=== PATIENT | male | born 1960 | race Hispanic/Latino ===

== ENCOUNTER 2019-04-16 15:23 | Observation (INO) | payer OTHER ==
[2019-04-16 15:51] LABS: Absolute Monocytes 0.4 K/uL (0.1-1.3); Absolute Neutrophil 3.6 K/uL (1.8-8.0); Basophils % 1.2 % (0-1.3); Eosinophils % 3.5 % (0-4.4); Hematocrit 43.2 % (39.6-49.0); Lymphocytes % 32.4 % (15.3-44.8); MPV 8.1 fL (7.6-11.3); RBC Red Blood Cell Count 4.78 M/uL (4.33-5.43)
[2019-04-16 15:52] LABS: Protime INR 0.91
[2019-04-16 16:20] LABS: ALT/SGPT 24 U/L (12-78); AST/SGOT 11 U/L (15-37); Alkaline Phosphatase 62 U/L (45-117); BUN Blood Urea Nitrogen 20 mg/dL (7-18); Bicarbonate 24 mmol/L (21-32); Bilirubin Direct 0.1 mg/dL (0-0.2); Bilirubin Total 0.6 mg/dL (0.2-1.0); Magnesium 2.1 mg/dL (1.8-2.4); NT PRO-BNP 32 pg/mL (<125); Potassium 4.2 mmol/L (3.5-5.1); Protein, Total 7.1 g/dL (6.4-8.2); Sodium Level 137 mmol/L (136-145); Troponin (Emerg Dept Use Only) < 0.02 ng/mL (0.0-0.045)
[2019-04-16 16:21] LABS: Glucose Level 454 mg/dL (74-106)
--- NOTE | 2019-04-16 16:27 | ER ---
Nurse's Notes [facility] Name: Deven Hughes Age: 58 yrs Sex: Male : 1960 Arrival Date: 04/16/2019 Time: 15:25 Bed 4 Private MD: Rena Murillo H Diagnosis: Chest pain, unspecified Presentation: 04/16 15:29 Presenting complaint: Patient states: midsternal chest pain with left arm radiation sv started about an hour ago and woke him up out of sleep with SOB and dry throat. Transition of care: patient was not received from another setting of care. Onset of symptoms was April 16, 2019 at 14:30. Initial Sepsis Screen: Does the patient meet any 2 criteria? No. Patient's initial sepsis screen is negative. Does the patient have a suspected source of infection? No. Patient's initial sepsis screen is negative. Care prior to arrival: None. 15:29 Method Of Arrival: Wheelchair sv 15:29 Acuity: STEF 3 sv 16:30 Risk Assessment: Do you want to hurt yourself or someone else? Patient reports no hb desire to harm self or others. Historical: - Allergies: 15:31 No Known Allergies; sv - PMHx: 15:31 Diabetes - NIDDM; Asthma; sv - PSHx: 15:31 Tonsillectomy; right thumb; sv - Immunization history:: Adult Immunizations up to date. - Social history:: Smoking status: Patient/guardian denies using tobacco, Patient/guardian denies using alcohol, street drugs, The patient lives with family. - Ebola Screening: : No symptoms or risks identified at this time. - Family history:: not pertinent. Screenin:39 Abuse screen: Denies threats or abuse. Denies injuries from another. Nutritional hb screening: No deficits noted. Tuberculosis screening: No symptoms or risk factors identified. Fall Risk None identified. Assessment: 15:39 General: Appears in no apparent distress. Behavior is calm, cooperative. Pain: hb Complains of pain in chest Pain does not radiate. Pain began suddenly, 4 hours ago. Neuro: Level of Consciousness is awake, alert, obeys commands, Oriented to person, place, time, situation. Cardiovascular: Heart tones S1 S2 present Capillary refill < 3 seconds Patient's skin is warm and dry. Respiratory: Airway is patent Respiratory effort is even, unlabored, Respiratory pattern is regular, symmetrical, Breath sounds are clear bilaterally. GI: No signs and/or symptoms were reported involving the gastrointestinal system. : No signs and/or symptoms were reported regarding the genitourinary system. EENT: No signs and/or symptoms were reported regarding the EENT system. Derm: Skin is intact, is healthy with good turgor, Skin is pink, warm \T\ dry. Musculoskeletal: No signs and/or symptoms reported regarding the musculoskeletal system. 16:30 Reassessment: Patient appears in no apparent distress at this time. No changes from previously documented assessment. Patient and/or family updated on plan of care and expected duration. Pain level reassessed. Patient is alert, oriented x 3, equal unlabored respirations, skin warm/dry/pink. 17:30 Reassessment: Patient appears in no apparent distress at this time. Patient and/or hb family updated on plan of care and expected duration. Pain level reassessed. Patient is alert, oriented x 3, equal unlabored respirations, skin warm/dry/pink. 17:58 Reassessment: Patient appears in no apparent distress at this time. Attempted to call hb report to floor, receiving nurse unavailable at this time. 18:24 Reassessment: Attempted to call report to floor, receiving nurse unassigned, Charge hb Nurse Savanna MARROQUIN notified. 19:02 Reassessment: Pt c/o chest pain 07/31. Dr. Tate notified, morphine and zofran hb administered as ordered. 19:10 General: Appears in no apparent distress. uncomfortable, Behavior is calm, cooperative, rr5 appropriate for age. Pain: Complains of pain in chest Pain does not radiate. Pain currently is 4 out of 10 on a pain scale. Quality of pain is described as aching, Pain began gradually, Is intermittent. Neuro: Level of Consciousness is awake, alert, obeys commands, Oriented to person, place, time, situation, Appropriate for age. Cardiovascular: Reports chest pain, Capillary refill < 3 seconds Patient's skin is warm and dry. Respiratory: Airway is patent Respiratory effort is even, unlabored, Respiratory pattern is regular, symmetrical. GI: No signs and/or symptoms were reported involving the gastrointestinal system. : No signs and/or symptoms were reported regarding the genitourinary system. EENT: No signs and/or symptoms were reported regarding the EENT system. Derm: Skin is intact, Skin is pink, warm \T\ dry. Musculoskeletal: Capillary refill < 3 seconds, Range of motion: intact in all extremities. 19:45 Reassessment: Patient appears in no apparent distress at this time. Patient is alert, rr5 oriented x 3, equal unlabored respirations, skin warm/dry/pink. call made to [facility] 4th floor and accepted the case. Vital Signs: 15:31 BP 135 / 95; Pulse 79; Resp 20; Temp 98.4; Pulse Ox 97% ; Pain 7/10; sv 16:30 BP 124 / 88; Pulse 76; Resp 17; Pulse Ox 100% on R/A; hb 17:30 BP 111 / 75; Pulse 77; Resp 18; Pulse Ox 98% on R/A; Pain 4/10; hb 18:30 BP 109 / 72; Pulse 77; Resp 15; Temp 97.7; Pulse Ox 99% on R/A; Pain 8/10; hb 19:10 BP 112 / 70; Pulse 75; Resp 17; Temp 97.5; Pulse Ox 99% ; Pain 5/10; rr5 19:48 BP 127 / 89; Pulse 68; Resp 17; Temp 97.9; Pulse Ox 100% ; Pain 3/10; rr5 ED Course: 15:25 Patient arrived in ED. dl4 15:26 Rena Murillo DO is Private Physician. dl4 15:30 Triage completed. sv 15:31 Arm band placed on. sv 15:34 Dannielle Tate MD is Attending Physician. ma2 15:36 Mandi Calderon, LOPEZ is Primary Nurse. hb 15:39 Patient has correct armband on for positive identification. Bed in low position. Call hb light in reach. Side rails up X 1. patient monitor on. Pulse ox on. NIBP on. 15:43 EKG done, by ED staff, reviewed by Dannielle Tate MD. Initial lab(s) drawn, by , john sent to lab. Inserted saline lock: 22 gauge in right antecubital area, using aseptic technique. Blood collected. 15:51 X-ray completed. Portable x-ray completed in exam room. Patient tolerated procedure tm4 well. 15:54 XRAY Chest (1 view) In Process Unspecified. EDMS 16:00 Patient maintains SpO2 saturation greater than 95% on room air. hb 16:27 Ric Cabrera DO is Hospitalizing Provider. ma2 19:05 No provider procedures requiring assistance completed. Patient admitted, IV remains in hb place. Administered Medications: 16:44 Drug: Insulin Regular Human 6 units {Co-Signature: bp (Hernandez Cordero RN).} Route: IVP; hb Site: right antecubital; 17:52 Follow up: Response: No adverse reaction; Blood sugar is lowered hb 16:44 Drug: Nitroglycerin 0.4 mg Route: Sublingual; hb 17:52 Follow up: Response: No adverse reaction; Pain is decreased hb 18:58 Drug: Zofran 4 mg Route: IVP; Site: right femoral; hb 20:00 Follow up: Response: No adverse reaction rr5 18:59 Drug: morphine 4 mg Route: IVP; Site: right antecubital; hb 20:00 Follow up: Response: No adverse reaction rr5 Outcome: 16:27 Decision to Hospitalize by Provider. ma2 19:05 Admitted to Tele accompanied by tech, via wheelchair, with chart. hb 19:05 Condition: stable 19:05 Instructed on the need for admit, Demonstrated understanding of instructions. 20:08 Patient left the ED. rr5 Signatures: Dispatcher [employer] EDMS Allen Parker jb1 Yola Figueroa, RN LOPEZ Chichi Haines tm4 Mandi Calderon RN RN Dannielle Tate MD MD ma2 Pérez Byrnes RN RN rr5 Luis Alberto Fregoso dl4 Hernandez Cordero RN bp
--- NOTE | 2019-04-16 16:28 | EDPHYS ---
Physician Documentation [facility] Name: Deven Hughes Age: 58 yrs Sex: Male : 1960 Arrival Date: 04/16/2019 Time: 15:25 Bed 4 Private MD: Rena Murillo H ED Physician Dannielle Tate HPI: 04/16 16:16 This 58 yrs old Male presents to ER via Wheelchair with complaints of Chest ma2 Pain. 16:16 The patient or guardian reports chest pain that is located primarily in the substernal ma2 area. Onset: suddenly, 5 hour(s) ago. The pain radiates to Associated signs and symptoms: Pertinent negatives: cough, headache, lightheadedness, nausea, syncope, vomiting. The chest pain is described as aching. Severity of pain: At its worst the pain was moderate in the emergency department the pain is unchanged. The patient has experienced a previous episode. Historical: - Allergies: 15:31 No Known Allergies; sv - PMHx: 15:31 Diabetes - NIDDM; Asthma; sv - PSHx: 15:31 Tonsillectomy; right thumb; sv - Immunization history:: Adult Immunizations up to date. - Social history:: Smoking status: Patient/guardian denies using tobacco, Patient/guardian denies using alcohol, street drugs, The patient lives with family. - Ebola Screening: : No symptoms or risks identified at this time. - Family history:: not pertinent. ROS: 16:16 Constitutional: Negative for fever, chills, and weight loss. ma2 16:16 Cardiovascular: Positive for chest pain, Negative for edema, palpitations, paroxysmal nocturnal dyspnea. 16:16 All other systems are negative. Exam: 16:16 Constitutional: This is a well developed, well nourished patient who is awake, alert, ma2 and in no acute distress. ENT: Nares patent. No nasal discharge, no septal abnormalities noted. Tympanic membranes are normal and external auditory canals are clear. Oropharynx with no redness, swelling, or masses, exudates, or evidence of obstruction, uvula midline. Mucous membranes moist. Neck: Trachea midline, no thyromegaly or masses palpated, and no cervical lymphadenopathy. Supple, full range of motion without nuchal rigidity, or vertebral point tenderness. No Meningismus. Chest/axilla: Normal chest wall appearance and motion. Nontender with no deformity. No lesions are appreciated. Cardiovascular: Regular rate and rhythm with a normal S1 and S2. No gallops, murmurs, or rubs. Normal PMI, no JVD. No pulse deficits. Respiratory: Lungs have equal breath sounds bilaterally, clear to auscultation and percussion. No rales, rhonchi or wheezes noted. No increased work of breathing, no retractions or nasal flaring. Abdomen/GI: Soft, non-tender, with normal bowel sounds. No distension or tympany. No guarding or rebound. No evidence of tenderness throughout. Skin: Warm, dry with normal turgor. Normal color with no rashes, no lesions, and no evidence of cellulitis. MS/ Extremity: Pulses equal, no cyanosis. Neurovascular intact. Full, normal range of motion. Vital Signs: 15:31 BP 135 / 95; Pulse 79; Resp 20; Temp 98.4; Pulse Ox 97% ; Pain 7/10; sv 16:30 BP 124 / 88; Pulse 76; Resp 17; Pulse Ox 100% on R/A; hb 17:30 BP 111 / 75; Pulse 77; Resp 18; Pulse Ox 98% on R/A; Pain 4/10; hb 18:30 BP 109 / 72; Pulse 77; Resp 15; Temp 97.7; Pulse Ox 99% on R/A; Pain 8/10; hb 19:10 BP 112 / 70; Pulse 75; Resp 17; Temp 97.5; Pulse Ox 99% ; Pain 5/10; rr5 19:48 BP 127 / 89; Pulse 68; Resp 17; Temp 97.9; Pulse Ox 100% ; Pain 3/10; rr5 MDM: 15:34 Patient medically screened. ma2 16:16 Differential diagnosis: abnormal EKG, anxiety, coronary artery disease chest wall pain, ma2 stable angina. HEART Score: History: Moderately Suspicious (1), ECG: Non specific repolarization disturbance / LBTB / PM (1), Age: > 45 and < 65 years (1), Risk Factors: 1 or 2 risk factors (1), Troponin: < or = 1 x Normal Limit (0), Total Score =. The patient was not given aspirin in the Emergency Department. Patient reports taking aspirin within the past 24 hours. 16:26 Data reviewed: vital signs, nurses notes. Counseling: I had a detailed discussion with ma2 the patient and/or guardian regarding: the historical points, exam findings, and any diagnostic results supporting the discharge/admit diagnosis, the presence of at least one elevated blood pressure reading (>120/80) during this emergency department visit, the need for further work-up and treatment in the hospital. Response to treatment: the patient's symptoms have markedly improved after treatment. 04/16 15:35 Order name: Basic Metabolic Panel; Complete Time: 16:25 ga2 04/16 15:35 Order name: CBC with Diff; Complete Time: 15:55 ma2 04/16 15:35 Order name: LFT's; Complete Time: 16:25 [facility] 04/16 15:35 Order name: Magnesium; Complete Time: 16:25 ga04/16 15:35 Order name: NT PRO-BNP; Complete Time: 16:25 [facility] 04/16 15:35 Order name: PT-INR; Complete Time: 15:56 ma2 04/16 15:35 Order name: Troponin (emerg Dept Use Only); Complete Time: 16:25 ga2 04/16 15:35 Order name: XRAY Chest (1 view); Complete Time: 18:55 ma2 04/16 16:59 Order name: Urine Dipstick--Ancillary (enter results); Complete Time: 18:55 bd 04/16 17:52 Order name: Glucose, Ancillary Testing; Complete Time: 18:55 EDMS 04/16 15:35 Order name: EKG; Complete Time: 15:37 ga2 04/16 15:35 Order name: Cardiac monitoring; Complete Time: 15:39 ma2 04/16 15:35 Order name: EKG - Nurse/Tech; Complete Time: 15:39 ma2 04/16 15:35 Order name: IV Saline Lock; Complete Time: 15:39 ma2 04/16 15:35 Order name: Labs collected and sent; Complete Time: 15:39 ma2 04/16 15:35 Order name: O2 Per Protocol; Complete Time: 15:39 ga2 04/16 15:35 Order name: O2 Sat Monitoring; Complete Time: 15:39 ma2 Administered Medications: 16:44 Drug: Insulin Regular Human 6 units {Co-Signature: bp (Hernandez Cordero RN).} Route: IVP; hb Site: right antecubital; 17:52 Follow up: Response: No adverse reaction; Blood sugar is lowered hb 16:44 Drug: Nitroglycerin 0.4 mg Route: Sublingual; hb 17:52 Follow up: Response: No adverse reaction; Pain is decreased hb 18:58 Drug: Zofran 4 mg Route: IVP; Site: right femoral; hb 20:00 Follow up: Response: No adverse reaction rr5 18:59 Drug: morphine 4 mg Route: IVP; Site: right antecubital; hb 20:00 Follow up: Response: No adverse reaction rr5 Disposition: 04/16/19 16:27 Hospitalization ordered by Ric Cabrera for Observation. Preliminary diagnosis is Chest pain, unspecified. - Bed requested for Telemetry/MedSurg (observation). - Status is Observation. rr5 - Condition is Stable. - Problem is new. - Symptoms are unchanged. UTI on Admission? No Signatures: Dispatcher [employer] Yola Melo RN RN Abby Black RN RN Mandi Calderon RN RN Dannielle Tate MD MD ma2 Pérez Byrnes, RN RN rr5 Hernandez Cordero RN bp Corrections: (The following items were deleted from the chart) 17:45 16:27 Hospitalization Ordered by Ric Cabrera DO for Observation. Preliminary dw diagnosis is Chest pain, unspecified. Bed requested for Telemetry/MedSurg (observation). Status is Observation. Condition is Stable. Problem is new. Symptoms are unchanged. UTI on Admission? No. ma2 20:08 17:45 04/16/2019 16:27 Hospitalization Ordered by Ric Cabrera DO for Observation. rr5 Preliminary diagnosis is Chest pain, unspecified. Bed requested for Telemetry/MedSurg (observation). Status is Observation. Condition is Stable. Problem is new. Symptoms are unchanged. UTI on Admission? No. dw
--- NOTE | 2019-04-16 16:48 | RAD REPORT ---
EXAM DESCRIPTION: RAD - Chest Single View - 04/16/2019 3:52 pm CLINICAL HISTORY: Chest pain radiating to the left arm COMPARISON: July 2016 TECHNIQUE: AP portable chest image was obtained 1550 hours . FINDINGS: Lung volumes are low accentuating lung markings. No focal mass, infiltrate or failure find ing. Heart and vasculature are normal. No measurable pleural effusion and no pneumothorax. No acute b ashlyn abnormality seen. No acute aortic findings suspected. IMPRESSION: No acute cardiopulmonary process. No suspicious change from comparison.
--- NOTE | 2019-04-16 17:20 | P.HP ---
Certification for Inpatient Patient admitted to: Observation With expected LOS: <2 Midnights Patient will require the following post-hospital care: None Practitioner: I am a practitioner with admitting privileges, knowledge of patient current condition, hospital course, and medical plan of care. Services: Services provided to patient in accordance with Admission requirements found in Title 42 Section 412.3 of the Code of Federal Regulations Patient History Date of Service: 04/16/19 Primary Care Provider: Dr. Murillo Reason for admission: Chest pain History of Present Illness: 58-year-old male presented to the emergency room with chest pain. Patient presented with chest pain that started early this morning when he woke up. It was to the substernal region. Pain was moderate. It was associated with shortness of breath, palpitation. No nausea or vomiting noted. Patient with history of diabetes uncontrolled. Patient has not followed up with his PCP for quite some time. He is not taking his medication-Metformin in over a month. Patient does not check his blood sugars. Patient came to the ER for further evaluation. In the ER patient evaluated. No significant EKG changes noted on EKG. Chest x- ray unremarkable. Initial troponin unremarkable. Blood sugars elevated. Blood sugar 454. Sodium 137, potassium 4.2, CBC unremarkable. Blood pressure 135/95. Heart rate 79. Room-air saturations within normal range. Patient was admitted for observation to further evaluate his chest pain. Patient seen in the ER. Pain improved. Heart score calculated-5. Patient with alcohol abuse and diabetes. Diabetes is uncontrolled. Patient reports non compliant with medication and follow up. Prior echocardiogram and exercise stress test in 2012 was unremarkable. Patient reports family history of heart disease-father with 3 prior stents. Allergies No Known Allergies Allergy (Verified 09/03/13 23:46) Home medications list reviewed: Yes Home Medications: Fluticasone/Salmeterol [Advair 100/50 Diskus*] 1 puff IH DAILY 09/04/13 Metformin ER [Glucophage ER*] 500 mg PO DAILY 09/04/13 Glimepiride [Amaryl*] 2 mg PO DAILY #60 tab 09/06/13 Pantoprazole Sodium [Protonix] 40 mg PO DAILY #0 tablet. 09/06/13 Simvastatin 40 mg PO BEDTIME #30 tablet 09/06/13 - Past Medical/Surgical History Diabetic: Yes -: Asthma -: Diabetes mellitus type 2 -: Alcohol abuse -: Tonsillectomy -: Right thumb surgery Psychosocial/ Personal History: Patient is - Family History Father -: Heart disease, Hypertension - Social History Smoking Status: Never smoker Alcohol use: Yes CD- Drugs: No Caffeine use: Yes Place of Residence: Home Review of Systems General: As per HPI Eyes: Unremarkable ENT: Unremarkable Respiratory: Shortness of Breath, As per HPI Cardiovascular: Chest Pain, Palpitations, As per HPI Gastrointestinal: Unremarkable Genitourinary: Unremarkable Musculoskeletal: Unremarkable Integumentary: Unremarkable Neurological: Unremarkable Lymphatics: Unremarkable Physical Examination - Physical Exam General: Alert, In no apparent distress, Oriented x3, Cooperative HEENT: Atraumatic, Normocephalic, PERRLA, Mucous membr. moist/pink, EOMI Neck: Supple, No Thyromegaly Respiratory: Clear to auscultation bilaterally, Normal air movement Cardiovascular: Normal pulses, Regular rate/rhythm Gastrointestinal: Normal bowel sounds, Soft and benign, Non-distended, No tenderness, No masses, No rebound, No guarding Musculoskeletal: No erythema, No tenderness, No warmth Integumentary: No tenderness/swelling, No erythema, No warmth, No cyanosis Neurological: Normal speech, Normal strength at 5/5 x4 extr, Normal tone, Normal affect - Studies Laboratory Data (last 24 hrs) 04/16/19 15:40: PT 10.8, INR 0.91 04/16/19 15:40: WBC 6.3, Hgb 15.1, Hct 43.2, Plt Count 219 04/16/19 15:40: Sodium 137, Potassium 4.2, BUN 20 H, Creatinine 0.94, Glucose 454 H*, Magnesium 2.1, Total Bilirubin 0.6, AST 11 L, ALT 24, Alkaline Phosphatase 62 Assessment and Plan - Plan Impression: Chest pain with multiple risk factors(DM/Alcohol use/Family history of CAD) Diabetes mellitus type 2, uncontrolled with poor follow-up and noncompliance with medication Suspect underlying hyperlipidemia Alcohol abuse Plan: Chest pain with multiple risk factors(DM/Alcohol use/Family history of CAD): Patient will be admitted for observation. Will monitor cardiac enzymes and telemetry. Will start aspirin, metoprolol, Lipitor, and Lovenox for DVT prophylaxis. Provide medication for chest pain if required. Will check urine drug screen. Will consult cardiology for further evaluation and recommendation. Will order echocardiogram and stress test to further assess his condition for cardiac disease. Heart score calculated-5. If workup unremarkable patient may be able to be discharged within 24 hr. If abnormal patient will further workup-heart catheterization. Will continue to monitor and assess closely. Diabetes mellitus type 2, uncontrolled with poor follow-up and noncompliance with medication: Patient non compliant with follow up and medication. Patient has taking metformin in the past. Blood sugars elevated. Will start Accu- Cheks with sliding scale. Will order hemoglobin A1c to determine plan of care at discharge. Will start basal insulin-Lantus 10 units subcu at bedtime due to elevated blood sugar. Patient may require continued insulin at discharge. Suspect underlying hyperlipidemia: Will start Lipitor. Will check fasting lipid panel. Alcohol abuse: Will continue to address alcohol cessation. Discharge Plan: Home Plan to discharge in: 24 Hours - Advance Directives Does patient have a Living Will: No Does patient have a Durable POA for Healthcare: No - Code Status/Comfort Care Code Status Assessed: Yes (Patient is full code.) Time Spent Managing Pts Care (In Minutes): 55
[2019-04-16 17:33] LABS: Urine Blood NEGATIVE (NEG); Urine Glucose 2+ (NEG); Urine Protein NEGATIVE (NEG)
[2019-04-16] MEDS ORDERED: ONDANSETRON 4 MG/2 ML VIAL ONE (19:11)
[2019-04-16] MEDS ORDERED: MORPHINE 4 MG/ML SYR ONE (19:11)
[2019-04-16] MEDS ORDERED: GLUCAGON 1 MG/VIAL IM PRN (20:05)
[2019-04-16] MEDS ORDERED: NITROGLYCERIN 0.4 MG/TAB SL PRN (20:05)
[2019-04-16] MEDS ORDERED: D50W 25 GM/50 ML SYRINGE IV PRN (20:05)
[2019-04-16] MEDS ORDERED: ACETAMINOPHEN 500 MG TAB PO PRN (20:05)
[2019-04-16] MEDS ORDERED: ONDANSETRON 4 MG/2 ML VIAL IV PRN (20:05)
[2019-04-16] MEDS ORDERED: MORPHINE 2 MG/ML SYR IV PRN (20:05)
[2019-04-16 20:15] VITALS: BMI 21.9
[2019-04-16 20:46] LABS: CKMB Creatine Kinase MB 1.7 ng/mL (0.3-3.6); Creatine Phosphokinase 61 U/L (39-308); Troponin I < 0.02 ng/mL (0.0-0.045)
[2019-04-16] MEDS ORDERED: ATORVASTATIN 40 MG TAB PO SCH (21:00)
[2019-04-16] MEDS ORDERED: INSULIN GLARGINE 100 UNITS/ML SQ SCH (21:00)
[2019-04-16] MEDS: FAMOTIDINE 20 MG TAB PO SCH (22:11)
[2019-04-16] MEDS: METOPROLOL TAR 25 MG TAB PO SCH (22:12)
[2019-04-16] MEDS: INSULIN -REGULAR HUMAN 50 UNIT/0.5 ML ML SQ SCH (22:13)
[2019-04-17 04:42] LABS: Absolute Lymphocytes (CBC) 1.9 K/uL (0.7-4.9); RBC Red Blood Cell Count 4.46 M/uL (4.33-5.43)
[2019-04-17 04:45] LABS: BUN Blood Urea Nitrogen 18 mg/dL (7-18); Bicarbonate 25 mmol/L (21-32); Glucose Level 239 mg/dL (74-106); HDL Cholesterol 47 mg/dL (40-60); LDL Cholesterol, Calculated 115 (<130); Magnesium 1.6 mg/dL (1.8-2.4); Potassium 3.7 mmol/L (3.5-5.1); Sodium Level 141 mmol/L (136-145)
[2019-04-17 04:48] LABS: Absolute Monocytes 0.6 K/uL (0.1-1.3); Absolute Neutrophil 3.8 K/uL (1.8-8.0); Basophils % 0.4 % (0-1.3); Eosinophils % 6.9 % (0-4.4); Hematocrit 39.8 % (39.6-49.0); MPV 7.9 fL (7.6-11.3); Monocytes % 8.7 % (3.3-12.3)
[2019-04-17 04:56] LABS: CKMB Creatine Kinase MB 2.2 ng/mL (0.3-3.6); Creatine Phosphokinase 47 U/L (39-308); Troponin I < 0.02 ng/mL (0.0-0.045)
[2019-04-17] MEDS: METOPROLOL TAR 25 MG TAB PO SCH (05:15)
[2019-04-17] MEDS ORDERED: MAGNESIUM SULFATE 1 gm IVPB 1 GM/100 ML BAG IV ONE (05:25)
[2019-04-17] MEDS ORDERED: POTASSIUM CL SA 10 MEQ TAB PO ONE (05:26)
--- NOTE | 2019-04-17 07:59 | EKG ---
Test Date: 2019-04-16 Test Time: 15:35:06 Oleomargarine Maker: HB MEASUREMENT RESULTS: Intervals: Rate: 67 IN: 144 QRSD: 86 QT: 418 QTc: 441 [place]: P: 63 IN: 144 QRS: 51 T: 27 INTERPRETIVE STATEMENTS: Normal sinus rhythm Nonspecific ST abnormality Abnormal ECG Compared to ECG 07/31/2016 14:37:44 ST (T wave) deviation now present Electronically Signed On 04-17-19 07:57:10 CDT by Hill Melendez
[2019-04-17] MEDS: FAMOTIDINE 20 MG TAB PO SCH (08:23)
[2019-04-17] MEDS: INSULIN -REGULAR HUMAN 50 UNIT/0.5 ML ML SQ SCH ×3 (08:24→17:33)
[2019-04-17] MEDS ORDERED: ASPIRIN EC 81 MG TAB PO SCH (09:00)
[2019-04-17] MEDS ORDERED: ENOXAPARIN 40 MG/0.4 ML SQ SCH (09:00)
--- NOTE | 2019-04-17 09:14 | P.PN ---
Subjective Date of Service: 04/17/19 Primary Care Provider: Dr. Murillo Chief Complaint: Chest pain Subjective: Doing well Physical Examination - Vital Signs Temperature: 97.8 F Blood Pressure: 116/71 Pulse: 63 Respirations: 20 Pulse Ox (%): 99 - Physical Exam General: Alert, In no apparent distress, Oriented x3, Cooperative HEENT: Atraumatic, Mucous membr. moist/pink Neck: Supple Respiratory: Clear to auscultation bilaterally, Normal air movement Cardiovascular: Normal pulses, Regular rate/rhythm Gastrointestinal: Normal bowel sounds, Soft and benign, Non-distended Musculoskeletal: No erythema, No tenderness, No warmth Integumentary: No tenderness/swelling, No erythema, No warmth, No cyanosis Neurological: Normal speech, Normal strength at 5/5 x4 extr, Normal tone, Normal affect - Studies Laboratory Data (last 24 hrs) 04/16/19 15:40: PT 10.8, INR 0.91 04/16/19 15:40: WBC 6.3, Hgb 15.1, Hct 43.2, Plt Count 219 04/16/19 15:40: Sodium 137, Potassium 4.2, BUN 20 H, Creatinine 0.94, Glucose 454 H*, Magnesium 2.1, Total Bilirubin 0.6, AST 11 L, ALT 24, Alkaline Phosphatase 62 Medications List Reviewed: Yes Assessment & Plan Discharge Plan: Home Plan to discharge in: 24 Hours Physician Review Additional Text: Impression: Chest pain with multiple risk factors(DM/Alcohol use/Family history of CAD) Diabetes mellitus type 2, uncontrolled with poor follow-up and noncompliance with medication Suspect underlying hyperlipidemia Alcohol abuse Plan: Chest pain with multiple risk factors(DM/Alcohol use/Family history of CAD): Cardiac enzymes unremarkable. Echo and stress test pending at this time. If unremarkable patient can be discharged today. If abnormal stress tests then patient will require heart catheterization. Case discussed with cardiology. Possible discharge on aspirin, lisinopril, Lipitor. Patient needs better diabetic control. Addressed compliance with follow up and medication. Await findings for determination of disposition. Diabetes mellitus type 2, uncontrolled with poor follow-up and noncompliance with medication: A1c 9.6. Patient will require metformin at discharge. Strict control of diet, follow up and medication address in detail. Patient understands risks. If no significant improvement patient will require 2nd agent or insulin. This can be further addressed as an outpatient. Hyperlipidemia: Continue with Lipitor and diet control Alcohol abuse: Will provide alcohol cessation education. Time Spent Managing Pts Care (In Minutes): 55
[2019-04-17] MEDS ORDERED: REGADENOSON 0.4 MG/5 ML SYR IV ONE (09:19)
--- NOTE | 2019-04-17 13:01 | RAD REPORT ---
EXAM DESCRIPTION: NM - Rest Stress Cardiac Imaging - 04/17/2019 12:37 pm CLINICAL HISTORY: Chest pain COMPARISON: None. TECHNIQUE: The patient was administered approximately 10 mCi of Tc 99m Sestamibi prior to resting SP ECT imaging of the heart. The patient was then administered approximately 30 mCi of Tc 99m Sestamibi following exercise or pharmacologic stress. Multiplanar SPECT images were reviewed. FINDINGS: The end diastolic volume is 65 ml, the end systolic volume is 25 ml, and the ejection frac tion is at 62 %. Physiologic distribution of the radiopharmaceutical through the myocardium is noted. No stress induce d ischemic defect is seen to suggest stress induced ischemia. No fixed defect is seen to suggest hibe rnating myocardium or scarred myocardium. IMPRESSION: No stress induced ischemia or other suspicious findings. Ventricular volumes and ejection fraction are normal range.
--- NOTE | 2019-04-17 13:22 | CON ---
Date of Consultation: 04/17/2019 Reason For Consultation: Chest pain. History Of Present Illness: Mr. Hughes is a 58-year-old male who has a history of diabetes, asthma, d yslipidemia, and gastroesophageal reflux disease. Never had any cardiac history. Does not smoke. H as a family history of heart disease. He woke up with substernal chest pressure with some shortness of breath and diaphoresis. He had some left arm discomfort as well. Symptoms did not last long, but he came to the emergency room where he was noted to have a normal EKG, normal chest x-ray, normal CP Ks, MBs, troponin, and BNP. His glucose, however, was more than 400. He is being treated for this a t this point. He is pain-free right now, in a normal rhythm. Allergies: NONE. Review of Systems: Negative. Social History: Negative. Family History: Positive for heart disease. Medications: At home include Protonix, Zocor, metformin, Advair, and Amaryl. Physical Examination: Vital Signs: Stable. Afebrile. HEENT: Negative. Neck: Supple with no bruit. Chest: Clear. Cardiac: Revealed a regular rhythm and rate. No murmurs, gallops, or rubs. Abdomen: Benign. Extremities: Revealed no clubbing, cyanosis, or edema. Diagnostic Data: As stated earlier. Impression And Plan: Chest pain that is concerning and certainly could be related to angina. He has many risk factors for heart disease. However, he has already ruled out for a myocardial infarction. EKG does not show any significant changes. His chest x-ray is normal. Certainly, his symptoms cou ld be related to gastroesophageal reflux disease. His glucose was more than 400 that may have contri buted to his symptoms as well. Nevertheless, Dr. aCbrera has already ordered an echocardiogram and a stress test, and I agree with that and we will see what that shows prior to making final decisions. I think in the long run, if his stress test is negative and he continues to have chest pain, I still would prefer to do a heart catheterization down the road. His other problems including reflux, dysli pidemia, and asthma seem to be well controlled at this point. PASTORA/CELEL Voice ID: [id number] Report ID: [id number]
--- NOTE | 2019-04-17 13:33 | TREADPHA ---
DX: CHEST PAIN Date of Study: 04/17/2019 Ht: 5 5 Wt: 132 lb 0 oz Consulting Physician: MANISHA MEDICATIONS: TYLENOL, ASPIRIN, LOVENOX, LANTUS, NOVOLIN-R, LOPRESSOR, NITROSTAT HISTORY: 58 YEAR OLD MALE WITH CHEST PAIN. MEDICAL HISTORY OF DIABETES AND ASTHMA. PHYSICIAL EXAMINATION: RESTING B.P.: 123/76 RESTING H.R.: 62 RESTING EKG: NORMAL PROTOCOL: LEXISCAN EXERCISE TIME: 3:30 B.P. AT PEAK STRESS: 99/74 IMPRESSION: LEXISCAN INJECTED. CARDIOLITE INJECTED PER PROTOCOL. SEE NUCLEAR MEDICINE REPORT. NO SUPRAVENTRICULAR TACHYCARDIA, VENTRICULAR TACHYCARDIA, OR PREMATURE VENTRICULAR COMPLEXES NOTED. 3-4/10 CHEST PAIN AFTER ADMINISTRATION OF LEXISCAN.
[2019-04-17 14:11] LABS: Barbiturates NEGATIVE (NEGATIVE); Benzodiazepines NEGATIVE (NEGATIVE); Cocaine NEGATIVE (NEGATIVE); METHAMPHETAM NEGATIVE (NEGATIVE); Methadone NEGATIVE (NEGATIVE); Opiates NEGATIVE (NEGATIVE); Phencyclidine NEGATIVE (NEGATIVE); THC Cannibis NEGATIVE (NEGATIVE)
[2019-04-17 14:27] LABS: Urine Appearance CLEAR; Urine Bilirubin NEGATIVE (NEG); Urine Blood NEGATIVE (NEG); Urine Color YELLOW; Urine Glucose 3+ (NEG); Urine Protein NEGATIVE (NEG); Urine Specific Gravity >=1.030 (1.005-1.030)
--- NOTE | 2019-04-17 16:12 | P.DS ---
Admission Date: 04/16/19 Discharge Date: 04/17/19 Primary Care Provider: Dr. Murillo Disposition: ROUTINE DISCHARGE Discharge Condition: GOOD Reason for Admission: Chest pain Consultations: Cardiology-Dr. Melendez Procedures: ECHO: Ejection fraction within normal range Cardiac Stress Test: COMPARISON: None. TECHNIQUE: The patient was administered approximately 10 mCi of Tc 99m Sestamibi prior to resting SPECT imaging of the heart. The patient was then administered approximately 30 mCi of Tc 99m Sestamibi following exercise or pharmacologic stress. Multiplanar SPECT images were reviewed. FINDINGS: The end diastolic volume is 65 ml, the end systolic volume is 25 ml, and the ejection fraction is at 62 %. Physiologic distribution of the radiopharmaceutical through the myocardium is noted. No stress induced ischemic defect is seen to suggest stress induced ischemia. No fixed defect is seen to suggest hibernating myocardium or scarred myocardium. IMPRESSION: No stress induced ischemia or other suspicious findings. Ventricular volumes and ejection fraction are normal range. Medical problem list: Chest pain with multiple risk factors(DM/Alcohol use/Family history of CAD) likely noncardiac with normal stress test Diabetes mellitus type 2, uncontrolled with poor follow-up and noncompliance with medication Hypertension Hyperlipidemia Alcohol abuse Suspect underlying GERD Brief History of Present Illness: 58-year-old male presented to the emergency room with chest pain. Patient presented with chest pain that started early this morning when he woke up. It was to the substernal region. Pain was moderate. It was associated with shortness of breath, palpitation. No nausea or vomiting noted. Patient with history of diabetes uncontrolled. Patient has not followed up with his PCP for quite some time. He is not taking his medication-Metformin in over a month. Patient does not check his blood sugars. Patient came to the ER for further evaluation. In the ER patient evaluated. No significant EKG changes noted on EKG. Chest x- ray unremarkable. Initial troponin unremarkable. Blood sugars elevated. Blood sugar 454. Sodium 137, potassium 4.2, CBC unremarkable. Blood pressure 135/95. Heart rate 79. Room-air saturations within normal range. Patient was admitted for observation to further evaluate his chest pain. Patient seen in the ER. Pain improved. Heart score calculated-5. Patient with alcohol abuse and diabetes. Diabetes is uncontrolled. Patient reports non compliant with medication and follow up. Prior echocardiogram and exercise stress test in 2012 was unremarkable. Patient reports family history of heart disease-father with 3 prior stents. Hospital Course: Patient presented with chest pain. Patient with multiple risk factors including diabetes, alcohol use and family history of CAD. Patient was admitted for further evaluation. Cardiac enzymes unremarkable. Patient seen and evaluated by Cardiology. Echocardiogram unremarkable. Cardiac stress test showed no stress-induced ischemia. Cardiology recommended no further intervention. At discharge patient will continue with aspirin 81 mg daily. Recommend to follow up with cardiology in 2-4 weeks to follow up this hospitalization. Cardiac Evaluation unremarkable. Patient may have underlying GERD. At discharge patient will continue with Pepcid 20 mg 1 pill twice daily. Recommend to follow up with GI as an outpatient to further evaluate. Patient may require a EGD to further address. Patient with underlying diabetes type 2 on controlled with poor follow-up and noncompliance with medication. Patient admits not taking any medication in quite some time. Hemoglobin A1c 9.6. Patient counseled on the importance of diet, follow up and medication. Patient plans to establish care with a local physician to continue monitoring closely. At discharge patient will continue with metformin 1000 mg 1 pill twice daily. Patient may require 2nd agent or insulin in the near future. This can be further addressed as an outpatient. For now patient is to keep a log of his blood sugars at least twice daily. Further adjustment in medication can be done by his PCP. Patient had elevated blood pressure upon admission. Patient started on medication. Patient likely with underlying hypertension. At discharge patient will continue with lisinopril 2.5 mg daily. He is to hold blood pressure medication if systolic less than 120. This can be further monitored and addressed by his PCP. Patient with elevated LDL. Considering his risk factors patient started on Lipitor. At discharge he will continue with Lipitor 10 mg daily. Patient will be provided information on lifestyle modification education. This can be further addressed and monitored by his PCP. Patient with alcohol abuse. Alcohol cessation addressed in detail. Patient plans to decrease and eventually quit. Tsh slightly elevated. Free T4 unremarkable. This can be rechecked by his PCP in 6-8 weeks to further address. Vital Signs/Physical Exam: Temp Pulse Resp BP Pulse Ox 98.1 F 67 20 97/61 97 04/17/19 12:00 04/17/19 12:00 04/17/19 12:00 04/17/19 12:00 04/17/19 12:00 General: Alert, In no apparent distress, Oriented x3, Cooperative HEENT: Atraumatic Neck: Supple Respiratory: Clear to auscultation bilaterally, Normal air movement Cardiovascular: Normal pulses, Regular rate/rhythm Gastrointestinal: Normal bowel sounds, Soft and benign, Non-distended, No tenderness, No masses, No rebound, No guarding Musculoskeletal: No erythema, No tenderness, No warmth Integumentary: No tenderness/swelling, No erythema, No warmth, No cyanosis Neurological: Normal speech, Normal strength at 5/5 x4 extr, Normal tone, Normal affect Laboratory Data at Discharge: WBC 6.8 K/uL (4.3-10.9) 04/17/19 04:05 Hgb 14.2 g/dL (13.6-17.9) 04/17/19 04:05 Hct 39.8 % (39.6-49.0) 04/17/19 04:05 Plt Count 197 K/uL (152-406) 04/17/19 04:05 PT 10.8 SECONDS (9.5-12.5) 04/16/19 15:40 INR 0.91 04/16/19 15:40 Sodium 141 mmol/L (136-145) 04/17/19 04:05 Potassium 3.7 mmol/L (3.5-5.1) 04/17/19 04:05 BUN 18 mg/dL (7-18) 04/17/19 04:05 Creatinine 0.74 mg/dL (0.55-1.3) 04/17/19 04:05 Glucose 239 mg/dL (74-106) H 04/17/19 04:05 Magnesium 1.6 mg/dL (1.8-2.4) L D 04/17/19 04:05 Total Bilirubin 0.6 mg/dL (0.2-1.0) 04/16/19 15:40 AST 11 U/L (15-37) L 04/16/19 15:40 ALT 24 U/L (12-78) 04/16/19 15:40 Alkaline Phosphatase 62 U/L (45-117) 04/16/19 15:40 Troponin I < 0.02 ng/mL (0.0-0.045) 04/17/19 04:05 Triglycerides 212 mg/dL (<150) H 04/17/19 04:05 Cholesterol 204 mg/dL (<200) H 04/17/19 04:05 HDL Cholesterol 47 mg/dL (40-60) 04/17/19 04:05 Cholesterol/HDL Ratio 4.34 04/17/19 04:05 Home Medications: Aspirin [Aspirin EC 81 MG] 81 mg PO DAILY #90 tablet. 04/17/19 Atorvastatin Calcium [Lipitor] 10 mg PO BEDTIME #30 tab 04/17/19 Famotidine [Pepcid*] 20 mg PO BID #60 tab 04/17/19 Lisinopril [Prinivil*] 2.5 mg PO DAILY #30 tab 04/17/19 Metformin HCl 1,000 mg PO BID #60 tablet 04/17/19 New Medications: Aspirin [Aspirin EC 81 MG] 81 mg PO DAILY #90 tablet. Atorvastatin Calcium [Lipitor] 10 mg PO BEDTIME #30 tab Famotidine [Pepcid*] 20 mg PO BID #60 tab Lisinopril [Prinivil*] 2.5 mg PO DAILY #30 tab Metformin HCl 1,000 mg PO BID #60 tablet Patient Discharge Instructions: 1. Patient will need a follow up with a PCP in 1 week to follow up this hospitalization and establish care. 2. Patient presented with chest pain. Patient with multiple risk factors including diabetes , alcohol use and family history of CAD. Patient was admitted for further evaluation. Cardiac enzymes unremarkable. Patient seen and evaluated by Cardiology. Echocardiogram unremarkable. Cardiac stress test showed no stress- induced ischemia. Cardiology recommended no further intervention. At discharge patient will continue with aspirin 81 mg daily. Recommend to follow up with cardiology in 2-4 weeks to follow up this hospitalization. 3. Cardiac Evaluation unremarkable. Patient may have underlying GERD. At discharge patient will continue with Pepcid 20 mg 1 pill twice daily. Recommend to follow up with GI as an outpatient to further evaluate. Patient may require a EGD to further address. 4. Patient with underlying diabetes type 2 on controlled with poor follow-up and noncompliance with medication. Patient admits not taking any medication in quite some time. Hemoglobin A1c 9.6. Patient counseled on the importance of diet, follow up and medication. Patient plans to establish care with a local physician to continue monitoring closely. At discharge patient will continue with metformin 1000 mg 1 pill twice daily. Patient may require 2nd agent or insulin in the near future. This can be further addressed as an outpatient. For now patient is to keep a log of his blood sugars at least twice daily. Further adjustment in medication can be done by his PCP. 5. Patient had elevated blood pressure upon admission. Patient started on medication. Patient likely with underlying hypertension. At discharge patient will continue with lisinopril 2.5 mg daily. He is to hold blood pressure medication if systolic less than 120. This can be further monitored and addressed by his PCP. 6. Patient with elevated LDL. Considering his risk factors patient started on Lipitor. At discharge he will continue with Lipitor 10 mg daily. Patient will be provided information on lifestyle modification education. This can be further addressed and monitored by his PCP. 7. Patient with alcohol abuse. Alcohol cessation addressed in detail. Patient plans to decrease and eventually quit. 8. Tsh slightly elevated. Free T4 unremarkable. This can be rechecked by his PCP in 6-8 weeks to further address. Diet: ADA Activity: Ad meño Time spent managing pt's care (in minutes): 55
--- NOTE | 2019-04-17 16:13 | ECHO ---
HEIGHT: 5 ft 5 in WEIGHT: 132 lb 0 oz DATE OF STUDY: 04/17/[address]: Ric Cabrera DO 2-DIMENSIONAL: YES M.MODE: YES DOPPLER: YES COLOR FLOW: YES TDS: PORTABLE: DEFINITY: BUBBLE STUDY: DIAGNOSIS: CHEST PAIN CARDIAC HISTORY: CATHERIZATION: NO SURGERY: NO PROSTHETIC VALVE: NO PACEMAKER: NO MEASUREMENTS (cm) DIASTOLIC (NORMALS) SYSTOLIC (NORMALS) IVSd 0.7 (0.6-1.2) LA Diam 2.5 (1.9-4.0) LVEF 55% LVIDd 3.1 (3.5-5.7) LVIDs 2.3 (2.0-3.5) %FS 28% LVPWd 0.7 (0.6-1.2) Ao Diam 2.8 (2.0-3.7) 2 DIMENSIONAL ASSESSMENT: RIGHT ATRIUM: NORMAL LEFT ATRIUM: NORMAL RIGHT VENTRICLE: NORMAL LEFT VENTRICLE: NORMAL TRICUSPID VALVE: NORMAL MITRAL VALVE: NORMAL PULMONIC VALVE: NORMAL AORTIC VALVE: NORMAL PERICARDIAL EFFUSION: NONE AORTIC ROOT: NORMAL LEFT VENTRICULAR WALL MOTION: NORMAL DOPPLER/COLOR FLOW: NORMAL COMMENTS: NORMAL 2-DIMENSIONAL ECHOCARDIOGRAM WITH DOPPLER. NO WALL MOTION ABNORMALITY. NO EFFUSION. TECHNOLOGIST: ROLANDO CALIXTO
[2019-04-17 16:26] VITALS: BP 113/72; TEMP 98.5
[2019-04-17 17:07] LABS: Urine Microscopic Reflex NO UMIC
[2019-04-17 18:01] VITALS: O2SAT 96
[2019-04-18] MEDS ORDERED: LISINOPRIL 5 MG TAB PO SCH (09:00)
== END 2019-04-17 18:01 | disposition home or self-care (01) ==
LOC: ER 15:23 → ERHOLD 17:01 → 4TH 19:46
PROVIDERS: ADMIT Family Medicine; ATTEND Family Medicine
DX: R07.9 Chest pain, unspecified (principal); E11.65 Type 2 diabetes mellitus with hyperglycemia; Z91.14 Patient's other noncompliance with medication regimen; Z91.19 Patient's noncompliance with other medical treatment and regimen; E78.5 Hyperlipidemia, unspecified; I10 Essential (primary) hypertension; J45.909 Unspecified asthma, uncomplicated; K21.9 Gastro-esophageal reflux disease without esophagitis; F10.10 Alcohol abuse, uncomplicated; R94.31 Abnormal electrocardiogram [ECG] [EKG]; Z79.82 Long term (current) use of aspirin; Z79.84 Long term (current) use of oral hypoglycemic drugs; Z79.899 Other long term (current) drug therapy; Z82.49 Family history of ischemic heart disease and other diseases of the circulatory system
CPT/HCPCS: 36415; 71045; 78452; 80048; 80061; 80076; 80307; 81003; 82550; 82553; 82962; 83036; 83735; 83880; 84439; 84443; 84484; 85025; 85610; 93005; 93017; 93306; 99285; A9500; G0378; J1650; J2405; J2785; J3475

== ENCOUNTER 2025-01-26 21:33 | Emergency (ER) | payer BC ==
--- OUTSIDE RECORDS SUMMARY | 2025-01-26 21:37 | XMS REPORT | Continuity of Care Document ---
Author Name Unknown Address [address] [place] [id number] [place] [address] [place] [address] [address] [place] [address] Care Team Providers Care Sternman Name Role Phone Yola Lamas Attending Clinician Eloy Diaz Admitting Clinician Unavailable Encounters Start Date/Time End Date/Time Encounter Type Admission Type Attending Clinicians Care Facility Care Department Encounter ID Source 2024-12-17 12:42:00 Outpatient Yola Lamas [facility] [id number] [facility]
[2025-01-26 22:26] LABS: Absolute Eosinophils 0.3 K/uL (0-0.5); Absolute Lymphocytes (CBC) 1.4 K/uL (0.7-4.9); Absolute Monocytes 0.5 K/uL (0.1-1.3); Absolute Neutrophil 4.6 K/uL (1.8-8.0); Basophils % 0.6 % (0-1.3); Eosinophils % 4.8 % (0-4.4); Hematocrit 41.4 % (39.6-49.0); Hemoglobin 14.5 g/dL (13.6-17.9); Lymphocytes % 20.6 % (15.3-44.8); MCH 32.7 pg (27.0-35.0); MCV 93.3 fL (80-100); MPV 6.8 fL (7.6-11.3); Monocytes % 7.8 % (3.3-12.3); Neutrophils % 66.2 % (41.7-73.7); Nucleated Red Blood Cells % 0.4 % (0-0); Platelets 237 thou/uL (152-406); RBC Red Blood Cell Count 4.44 M/uL (4.33-5.43); Red Cell Distribution Width 12.8 % (12.1-15.2)
[2025-01-26 22:45] LABS: ALT/SGPT 30 U/L (16-61); AST/SGOT 17 U/L (15-37); Albumin 3.5 g/dL (3.4-5.0); Alkaline Phosphatase 63 U/L (45-117); Anion Gap 9.9 mEq/L (5.0-15.0); BUN Blood Urea Nitrogen 20 mg/dL (7-18); Bicarbonate 28 mEq/L (21-32); Bilirubin Total 0.5 mg/dL (0.2-1.0); Globulin 3.4 g/dL (2.3-3.5); Glomerular Filtration Rate 73 ml/min (=/>90); Glucose Level 256 mg/dL (74-106); Lipase 40 U/L (13-75); Potassium 3.9 mEq/L (3.5-5.1); Protein, Total 6.9 g/dL (6.4-8.2); Sodium Level 139 mEq/L (136-145)
[2025-01-26 22:59] LABS: Bilirubin Direct < 0.2 mg/dL (0-0.2); Bilirubin Indirect, Calculated 0.3 mg/dL (0.2-0.8)
[2025-01-26 23:00] LABS: Troponin High Sensitivity < 3.0 pg/mL (<58.9)
[2025-01-26] MEDS ORDERED: ASPIRIN 325 MG TAB ONE (23:16)
--- NOTE | 2025-01-27 00:41 | RAD REPORT ---
EXAM: XR Chest, 1 View CLINICAL HISTORY: The patient is 64 years old and is Male; CHEST PAIN TECHNIQUE: Frontal view of the chest. COMPARISON: No relevant prior studies available. FINDINGS: LUNGS: Patient right hemidiaphragm is present. The lungs are otherwise well-inflated and clear. No consolidation. PLEURAL SPACE: Unremarkable. No pneumothorax. HEART: Unremarkable. No cardiomegaly. MEDIASTINUM: Unremarkable. Normal mediastinal contour. BONES/JOINTS: Degenerative change of the shoulders is noted. No acute fracture. UPPER ABDOMEN: Unremarkable as visualized. IMPRESSION: No acute cardiopulmonary process. Electronically signed by: Quyen Kerr MD 01/26/2025 11:52 PM [facility] Due to temporary technical issues with the [employer] reporting system, reports are being selvin d by the in-house radiologist without review as a courtesy to ensure prompt reporting the interpreting radiologist is fully responsible for the content of the report. Transcribed Date/Time: 01/27/2025 12:41 AM
--- NOTE | 2025-01-27 01:26 | EDPHYS ---
Physician Documentation [facility] Name: Deven Hughes Age: 64 yrs Sex: Male : 1960 Arrival Date: 01/26/2025 Time: 21:33 Bed 5 Private MD: ED Physician Alberto Tinsley HPI: 01/26 22:05 This 64 yrs old Male presents to ER via Ambulatory with complaints of Chest rt Pain, Headache, General Weakness, Fatigue. 22:05 Patient presents to the ED with about 1 day of chest pain. Patient states it is rt substernal, nonradiating, denies other associated symptoms. Patient states this occurred after drinking about 6 beers yesterday. States that the pain worsened when he lies on his right side, improves when he lies on his back or on his left side. The patient states that the pain persisted today, is only very minor at this time. Denies other acute complaints at this time, symptoms are moderate in severity, no other aggravating alleviating factors.. Historical: - Allergies: 21:51 No Known Allergies; iw - PMHx: 21:51 Diabetes - NIDDM; Asthma; iw - PSHx: 21:51 carpal tunnel; Tonsillectomy; iw - Immunization history:: Adult Immunizations not up to date. - Infectious Disease History:: Denies. - Social history:: Smoking status: Patient denies any tobacco usage or history of. Patient uses alcohol, weekly. - Family history:: not pertinent. ROS: 22:05 Constitutional: Negative for fever, chills, and weight loss, Respiratory: Negative for rt shortness of breath, cough, wheezing, and pleuritic chest pain, Abdomen/GI: Negative for abdominal pain, nausea, vomiting, diarrhea, and constipation, MS/Extremity: Negative for injury and deformity, Skin: Negative for injury, rash, and discoloration, Neuro: Negative for headache, weakness, numbness, tingling, and seizure, 22:05 Cardiovascular: Positive for chest pain, Negative for edema, Exam: 22:05 Constitutional: This is a well developed, well nourished patient who is awake, alert, rt and in no acute distress. Head/Face: Normocephalic, atraumatic. Chest/axilla: Normal chest wall appearance and motion. Nontender with no deformity. No lesions are appreciated. Cardiovascular: Regular rate and rhythm with a normal S1 and S2. No gallops, murmurs, or rubs. Normal PMI, no JVD. No pulse deficits. Respiratory: Lungs have equal breath sounds bilaterally, clear to auscultation and percussion. No rales, rhonchi or wheezes noted. No increased work of breathing, no retractions or nasal flaring. Abdomen/GI: Soft, non-tender, with normal bowel sounds. No distension or tympany. No guarding or rebound. No evidence of tenderness throughout. Skin: Warm, dry with normal turgor. Normal color with no rashes, no lesions, and no evidence of cellulitis. MS/ Extremity: Pulses equal, no cyanosis. Neurovascular intact. Full, normal range of motion. Neuro: Awake and alert, GCS 15, oriented to person, place, time, and situation. Cranial nerves II-XII grossly intact. Motor strength 5/5 in all extremities. Sensory grossly intact. Cerebellar exam normal. Normal gait. 22:05 ECG was reviewed by the Attending Physician. Vital Signs: 21:50 BP 129 / 83; Pulse 78; Resp 16; Temp 97.3; Pulse Ox 99% ; Weight 56.7 kg; Height 5 ft. iw 4 in. ; Pain 6/10; 23:46 BP 116 / 75; Pulse 81; Resp 17 S; Pulse Ox 98% on R/A; ha1 01/27 00:00 BP 131 / 72; Pulse 79; Resp 16; Pulse Ox 96% on R/A; dd2 00:30 BP 129 / 77; Pulse 85; Resp 16; Pulse Ox 96% on R/A; dd2 01:30 BP 129 / 76; Pulse 67; Resp 16; Pulse Ox 96% on R/A; dd2 01/26 21:50 Body Mass Index 21.46 (56.70 kg, 162.56 cm) iw 01/26 21:50 Pain Scale: Adult iw MDM: 01/26 21:53 Medical Screening Exam initiated rt 01/27 04:06 Differential diagnosis: ACS, gastritis, nonspecific chest pain, chest wall pain. HEART rt Score: History: Slightly Suspicious (0), ECG: Normal (0), Age: > 45 and < 65 years (1), Risk Factors: 1 or 2 risk factors (1), Troponin: < or = 1 x Normal Limit (0), Total Score = 2. The patient was given aspirin in the Emergency Department. Data reviewed: vital signs, nurses notes, lab test result(s), EKG, radiologic studies. Consideration of Admission/Observation Escalation of care including admission/observation considered. I considered the following discharge prescriptions or medication management in the emergency department Medications were administered in the Emergency Department. See MAR. Independent interpretation of the following test(s) in the Emergency Department X-Ray: My interpretation is No infiltrate seen on interpretation of x-ray images. Test considered but Not performed: CT: Low suspicion for PE, CT angiogram not indicated. Care significantly affected by the following chronic conditions: Diabetes. Counseling: I had a detailed discussion with the patient and/or guardian regarding the historical points, exam findings, and any diagnostic results supporting the discharge/admit diagnosis, lab results, radiology results, the need for outpatient follow up, to return to the emergency department if symptoms worsen or persist or if there are any questions or concerns that arise at home. Response to treatment: the patient's symptoms have markedly improved after treatment. 01/26 21:59 Order name: Basic Metabolic Panel; Complete Time: 23:11 rt 01/26 21:59 Order name: CBC with Diff; Complete Time: 22:54 rt 01/26 21:59 Order name: LFT's; Complete Time: 23:11 rt 01/26 21:59 Order name: Troponin HS; Complete Time: 23:11 rt 01/26 21:59 Order name: Lipase; Complete Time: 23:11 rt 01/27 00:14 Order name: Troponin High Sensitivity; Complete Time: 01:22 rt 01/26 21:59 Order name: XRAY Chest (1 view) rt 01/26 21:59 Order name: Cardiac monitoring; Complete Time: 23:17 rt 01/26 21:59 Order name: EKG - Nurse/Tech; Complete Time: 22:01 rt 01/26 21:59 Order name: IV Saline Lock; Complete Time: 22:18 rt 01/26 21:59 Order name: Labs collected and sent; Complete Time: 22:18 rt 01/26 21:59 Order name: O2 Per Protocol; Complete Time: 23:17 rt 01/26 21:59 Order name: O2 Sat Monitoring; Complete Time: 23:17 rt EC/08 22:05 Rate is 75 beats/min. Rhythm is regular, Normal Sinus Rhythm with No ectopy. QRS [place] rt is Normal. [place] interval is normal. QRS interval is normal. QT interval is normal. No Q waves. T waves are Normal. No ST changes noted. Interpreted by me. Administered Medications: 23:17 Drug: Aspirin PO 325 mg PO once Route: PO; ha1 23:46 Follow up: Response: No adverse reaction ha1 Disposition Summary: 01/27/25 01:26 Discharge Ordered Notes: Location: Home rt Problem: new rt Symptoms: have improved rt Condition: Stable rt Diagnosis - Chest pain, unspecified rt Followup: rt - With: Beny Anglin MD - When: 2 - 3 days - Reason: Discharge Instructions: - Discharge Summary Sheet rt - Nonspecific Chest Pain, Adult rt Forms: - Medication Reconciliation Form rt - Antibiotic Education rt - Prescription Opioid Use rt - Patient Portal Instructions rt - Leadership Thank You Letter rt Prescriptions: - Protonix 40 mg Oral Tablet - take 1 tablet ORAL route once daily; 30 tablet; Refills: 0, Product Selection rt Permitted Signatures: Dispatcher [employer] Pati Yan, LOPEZ MARROQUIN Lilia Molina RN RN ha1 Alberto Tinsley MD MD rt Corrections: (The following items were deleted from the chart) 21:59 21:59 BASIC METABOLIC PANEL+C.LAB.BRZ ordered. EDMS EDMS 21:59 21:59 CBC+H.LAB.BRZ ordered. EDMS EDMS 21:59 21:59 HEPATIC FUNCTION+C.LAB.BRZ ordered. EDMS EDMS 21:59 21:59 Troponin High Sensitivity+C.LAB.BRZ ordered. EDMS EDMS 21:59 21:59 LIPASE+C.LAB.BRZ ordered. EDMS EDMS 22:00 22:00 Chest Single View+RAD.RAD.BRZ ordered. EDMS EDMS
--- NOTE | 2025-01-27 01:26 | ER ---
Nurse's Notes [facility] Name: Deven Hughes Age: 64 yrs Sex: Male : 1960 Arrival Date: 01/26/2025 Time: 21:33 Bed 5 Private MD: Diagnosis: Chest pain, unspecified Presentation: 01/26 21:50 Chief complaint: Patient states: started having midsternal chest pains last night, it iw was constant last night , family states he was drinking and he passed out , pt states the pain is still there today , got worse. Coronavirus screen: At this time, the client does not indicate any symptoms associated with coronavirus-19. Ebola Screen: No symptoms or risks identified at this time. Initial Sepsis Screen: Does the patient meet any 2 criteria? No. Patient's initial sepsis screen is negative. Does the patient have a suspected source of infection? No. Patient's initial sepsis screen is negative. Risk Assessment: Do you want to hurt yourself or someone else? Patient reports no desire to harm self or others. Onset of symptoms was January 25, 2025. 21:50 Method Of Arrival: Ambulatory iw 21:50 Acuity: STEF 3 iw Historical: - Allergies: 21:51 No Known Allergies; iw - PMHx: 21:51 Diabetes - NIDDM; Asthma; iw - PSHx: 21:51 carpal tunnel; Tonsillectomy; iw - Immunization history:: Adult Immunizations not up to date. - Infectious Disease History:: Denies. - Social history:: Smoking status: Patient denies any tobacco usage or history of. Patient uses alcohol, weekly. - Family history:: not pertinent. Screenin:47 [facility] ED Fall Risk Assessment (Adult) History of falling in the last 3 months, ha1 including since admission No falls in past 3 months (0 pts) Confusion or Disorientation No (0 pts) Intoxicated or Sedated No (0 pts) Impaired Gait No (0 pts) Mobility Assist Device Used No (0 pt) Altered Elimination No (0 pt) Score/Fall Risk Level 0 - 2 = Low Risk Oriented to surroundings, Maintained a safe environment, Educated pt \T\ family on fall prevention, incl call for assistance when getting out of bed, Hourly rounding (assess needs \T\ fall precautionary measures) done. Abuse screen: Denies threats or abuse. Denies injuries from another. Nutritional screening: No deficits noted. Tuberculosis screening: No symptoms or risk factors identified. Assessment: 23:00 General: Appears comfortable, Behavior is calm, cooperative. Pain: Complains of pain in ha1 chest Pain does not radiate. Pain currently is 5 out of 10 on a pain scale. Quality of pain is described as pressure, Pain began gradually. Neuro: Level of Consciousness is awake, alert, obeys commands, Oriented to person, place, time, situation. Cardiovascular: Reports chest pain, Heart tones S1 S2 present Capillary refill < 3 seconds Patient's skin is warm and dry. Respiratory: Airway is patent Respiratory effort is even, unlabored, Respiratory pattern is regular, symmetrical. GI: No signs and/or symptoms were reported involving the gastrointestinal system. Abdomen is round non-distended. : No signs and/or symptoms were reported regarding the genitourinary system. Musculoskeletal: Circulation, motion, and sensation intact. Range of motion: intact in all extremities. Vital Signs: 21:50 BP 129 / 83; Pulse 78; Resp 16; Temp 97.3; Pulse Ox 99% ; Weight 56.7 kg; Height 5 ft. iw 4 in. ; Pain 6/10; 23:46 BP 116 / 75; Pulse 81; Resp 17 S; Pulse Ox 98% on R/A; ha1 01/27 00:00 BP 131 / 72; Pulse 79; Resp 16; Pulse Ox 96% on R/A; dd2 00:30 BP 129 / 77; Pulse 85; Resp 16; Pulse Ox 96% on R/A; dd2 01:30 BP 129 / 76; Pulse 67; Resp 16; Pulse Ox 96% on R/A; dd2 01/26 21:50 Body Mass Index 21.46 (56.70 kg, 162.56 cm) iw 01/26 21:50 Pain Scale: Adult iw ED Course: 01/26 21:37 Patient arrived in ED. gm2 21:38 Alberto Tinsley MD is Attending Physician. rt 21:51 Triage completed. iw 21:53 Arm band placed on. iw 22:19 Inserted saline lock: 20 gauge in right antecubital area, using aseptic technique. bf2 Blood collected. Flushed with 10 mL NS. 22:42 XRAY Chest (1 view) In Process Unspecified. EDMS 23:00 Client placed on continuous cardiac and pulse oximetry monitoring. NIBP monitoring ha1 applied. civil manager on. 23:00 Patient has correct armband on for positive identification. Bed in low position. Call ha1 light in reach. Side rails up X 1. Adult w/ patient. 23:00 Provided Education on: plan of care and medication administration . ha1 23:48 Patient maintains SpO2 saturation greater than 95% on room air. ha1 01/27 00:46 SANDRA AGUILAR, LOPEZ is Primary Nurse. dd2 01:26 Beny Anglin MD is Referral Physician. rt 03:12 No provider procedures requiring assistance completed. IV discontinued, intact, dd2 bleeding controlled, No redness/swelling at site. Pressure dressing applied. Administered Medications: 01/26 23:17 Drug: Aspirin PO 325 mg PO once Route: PO; ha1 23:46 Follow up: Response: No adverse reaction ha1 Medication: 23:48 VIS not applicable for this client. ha1 Outcome: 01/27 01:26 Discharge ordered by MD. rt 03:12 Discharged to home ambulatory, dd2 03:12 Condition: improved 03:12 Discharge instructions given to patient, significant other, Instructed on discharge instructions, follow up and referral plans. medication usage, Demonstrated understanding of instructions, follow-up care, medications, Prescriptions given X 1, 03:13 Patient left the ED. dd2 Signatures: Dispatcher [employer] EDNE Pati Grey RN RN Lilia Molina RN RN ha1 Alberto Tinsley MD MD rt Lisa Small 2 Lorenza Lawton 2 SANDRA AGUILAR RN RN dd2
[2025-01-27 03:30] VITALS: TEMP 97.3
[2025-01-27 03:42] VITALS: O2SAT 96
[2025-01-27 03:45] VITALS: BP 129/76
--- NOTE | 2025-01-29 11:08 | EKG ---
Test Date: 2025-01-26 Test Time: 22:00:48 Window Decorator: LITTLE MEASUREMENT RESULTS: Intervals: Rate: 75 AK: 146 QRSD: 78 QT: 398 QTc: 444 [place]: P: 46 AK: 146 QRS: 48 T: 35 INTERPRETIVE STATEMENTS: Normal sinus rhythm Normal ECG Compared to ECG 04/16/2019 15:35:06 ST (T wave) deviation no longer present Electronically Signed On 01-29-25 11:01:50 CDT by Oswaldo Castro
== END 2025-01-27 03:13 | disposition home or self-care (01) ==
LOC: ER 21:33
DX: R07.9 Chest pain, unspecified (principal); R53.1 Weakness; R53.83 Other fatigue
CPT/HCPCS: 36415; 71045; 80048; 80076; 83690; 84484; 85025; 93005; 99284